=== PATIENT | female | born 1940 | race Caucasian/White ===

== ENCOUNTER 2019-10-22 09:57 | Emergency (ER) | payer MEDICARE ==
[~2019-10-22] VITALS: Ht 149.9 cm; Wt 67.4 kg
--- NOTE | 2019-10-22 10:14 | NUR ---
PT WAS AMBULATORY TO ED ROOM 22, ACCOMPANIED BY SPOUSE. PT SENT TO ED PER [facility]. C/O LLQ PAIN X 4 DAYS. DENIES N/V. ADVIL YESTERDAY, NO PAIN MEDS TODAY. LAST BM THIS AM (REGULAR). LAST ORAL INTAKE: COFFEE 0800 TODAY.
[2019-10-22] MEDS ORDERED: SIMVASTATIN (10:20)
--- NOTE | 2019-10-22 10:56 | NUR ---
PIV INITIATED; LABS DRAWN FROM SITE.
[2019-10-22] MEDS ORDERED: SODIUM CHLORIDE FLUSH 10ML SYR IVF ONE (11:00)
--- NOTE | 2019-10-22 11:02 | NUR ---
AMBULATORY TO & FROM [facility] W/OUT INCIDENT; GAIT STEADY. VOIDED SPECIMEN PROVIDED: CLEAR, YELLOW.
[2019-10-22 11:12] LABS: BASOPHILS # (AUTO) 0.04 x10^3/uL (0-0.1); BASOPHILS % (AUTO) 0 % (0-1); EOSINOPHILS % (AUTO) 1 % (1-7); LYMPHOCYTES # (AUTO) 3.06 x10^3/uL (1-3.4); LYMPHOCYTES % (AUTO) 26 % (22-44); MD NO; MEAN CORPUSCULAR HEMOGLOBIN 31.2 pg (27.0-34.8); MEAN CORPUSCULAR HGB CONC 33.3 g/dL (32.4-35.8); MEAN CORPUSCULAR VOLUME 93.5 fL (80-100); MEAN PLATELET VOLUME 8.4 fL (7.4-10.4); MONOCYTES # (AUTO) 1.41 x10^3/uL (0.2-0.8); MONOCYTES % (AUTO) 12 % (2-9); NEUTROPHILS # (AUTO) 6.98 x10^3/uL (1.8-6.8); NEUTROPHILS % (AUTO) 60 % (42-75); PLATELET COUNT 205 x10^3/uL (130-400); RED CELL DISTRIBUTION WIDTH 13.7 % (9.6-15.2)
[2019-10-22 11:20] LABS: ALBUMIN 3.5 g/dL (3.4-5.0); ANION GAP 5 mmol/L (5-15); CALCIUM 9.2 mg/dL (8.5-10.1); CHLORIDE 107 mmol/L (98-107)
[2019-10-22 11:23] LABS: ALANINE AMINOTRANSFERASE 31 U/L (12-78); ALKALINE PHOSPHATASE 73 U/L (45-117); BILIRUBIN,TOTAL 0.9 mg/dL (0.2-1.0); TOTAL PROTEIN 7.9 g/dL (6.4-8.2)
[2019-10-22 11:32] LABS: MICROSCOPIC INDICATED
[2019-10-22 11:33] LABS: CULTURE INDICATED? YES
[2019-10-22] MEDS ORDERED: METRONIDAZOLE PMX 500MG/100ML 100 ML ONE (13:18)
[2019-10-22] MEDS ORDERED: CEFDINIR 300 MG CAPSULE ONE (13:18)
[2019-10-22] MEDS ORDERED: METRONIDAZOLE PMX 500MG/100ML 100 ML IV ONE (13:30)
[2019-10-22] MEDS ORDERED: CEFDINIR 300 MG CAPSULE PO ONE (13:30)
--- NOTE | 2019-10-22 13:52 | NUR ---
[facility]USA [facility] INFUSING AT 100ML/HR VIA PUMP. IV SITE PATENT.
[2019-10-22] MEDS ORDERED: OMNIPAQUE 350 MG/ML, 100ML BOTTLE ONE (14:25)
[2019-10-22 14:28] VITALS: BP 131/62
== END 2019-10-22 15:44 | disposition home or self-care (01) ==
LOC: ED 12:16
DX: K57.32 Diverticulitis of large intestine without perforation or abscess without bleeding (principal); E78.00 Pure hypercholesterolemia, unspecified
CPT/HCPCS: 36415; 74177; 80053; 81001; 85025; 87077; 87086; 87186; 96365; 99284; Q9967

== ENCOUNTER 2021-07-06 10:19 | Emergency (ER) | payer MEDICARE ==
[~2021-07-06] VITALS: Ht 149.9 cm; Wt 66.6 kg
[~2021-07-06 10:19] MED LIST: SIMVASTATIN
--- NOTE | 2021-07-06 10:38 | NUR ---
PT AMBULATES TO ROOM FROM TRIAGE WITH STEADY GAIT.
[2021-07-06] MEDS ORDERED: SODIUM CHLORIDE FLUSH 10ML SYR IVF ONE (11:30)
[2021-07-06] MEDS ORDERED: SODIUM CHLORIDE 0.9% 1,000ML IVBOLUS ONE (11:30)
[2021-07-06] MEDS ORDERED: ONDANSETRON 2MG/ML, 2ML IVPush ONE (11:30)
[2021-07-06] MEDS ORDERED: MORPHINE SULFATE 4 MG/ML, 1ML IVPush PRN (11:30)
[2021-07-06] MEDS ORDERED: ONDANSETRON 2MG/ML, 2ML ONE (11:39)
[2021-07-06] MEDS ORDERED: MORPHINE SULFATE 4 MG/ML, 1ML ONE (11:39)
--- NOTE | 2021-07-06 11:43 | NUR ---
PT MEDICATED PER JAN. SOLANGE SKINNER AT BS TO STRAIGHT CATH PT
[2021-07-06 11:46] LABS: MEAN CORPUSCULAR HEMOGLOBIN 30.4 pg (27.0-34.8); MEAN CORPUSCULAR HGB CONC 33.9 g/dL (32.4-35.8); MEAN PLATELET VOLUME 8.1 fL (7.4-10.4); PLATELET COUNT 190 x10^3/uL (130-400); RED BLOOD COUNT 4.54 x10^6/uL (3.82-5.3); RED CELL DISTRIBUTION WIDTH 13.3 % (9.6-15.2)
[2021-07-06 11:58] LABS: ALANINE AMINOTRANSFERASE 33 U/L (12-78); ALBUMIN 3.2 g/dL (3.4-5.0); ANION GAP 6 mmol/L (5-15); CALCIUM 8.8 mg/dL (8.5-10.1); CHLORIDE 108 mmol/L (98-107)
[2021-07-06 12:02] LABS: ALKALINE PHOSPHATASE 62 U/L (45-117); BILIRUBIN,TOTAL 0.4 mg/dL (0.2-1.0); TOTAL PROTEIN 7.7 g/dL (6.4-8.2); TROPONIN I < 0.015 ng/mL (0.000-0.045)
[2021-07-06 12:21] LABS: BAND#(MANUAL) 0.32 x10^3/uL; BANDS%(MANUAL) 5 % (0-7); EOS#(MANUAL) 0.06 x10^3/uL (0.0-0.4); EOS% (MANUAL) 1 % (1-7); LYMPHS% (MANUAL) 25 % (22-44); MONOS#(MANUAL) 1.22 x10^3/uL (0.3-2.7); MONOS% (MANUAL) 19 % (2-9); REACTIVE LYMPHS # (MANUAL) 1.22 x10^3/uL (0-0); REACTIVE LYMPHS % (MANUAL) 19 % (0-0); SEG#(MANUAL) 1.98 x10^3/uL (1.8-6.8); SEGS% (MANUAL) 31 % (42-75)
[2021-07-06 12:22] LABS: <PLATELET ESTIMATE> DECREASED; <PLT MORPHOLOGY> NORMAL PLT MORPH; <RBC MORPHOLOGY> NORMAL
--- NOTE | 2021-07-06 12:29 | NUR ---
PT TO CT VIA [facility] AT THIS TIME.
[2021-07-06] MEDS ORDERED: OMNIPAQUE 350 MG/ML, 100ML BOTTLE ONE (12:34)
[2021-07-06 12:45] LABS: MICROSCOPIC INDICATED
--- NOTE | 2021-07-06 12:49 | NUR ---
PT AMBULATES TO RESTROOM WITH STEADY GAIT.
[2021-07-06 13:28] VITALS: BP 134/82
== END 2021-07-06 13:30 | disposition home or self-care (01) ==
LOC: ED 13:24
DX: K57.32 Diverticulitis of large intestine without perforation or abscess without bleeding (principal); R10.32 Left lower quadrant pain; R19.7 Diarrhea, unspecified; E78.5 Hyperlipidemia, unspecified
CPT/HCPCS: 36415; 71045; 74177; 80053; 81001; 83605; 84484; 85025; 87077; 87086; 93005; 96361; 96374; 96375; 99285; J2270; J2405; J7030; Q9967; 87186